=== PATIENT | male | born 1950 | race Caucasian/White ===

== ENCOUNTER → 2024-06-24 11:50 | Outpatient (CLI) | payer OTHER, SELFPAY ==
--- NOTE | 2024-06-24 11:56 | DI.CT.S_ITS ---
PROCEDURE: CT CHEST WO CON INDICATIONS: ABN FINDING OF LUNG FIELD TECHNIQUE: Noncontrast 5 mm thick sections acquired from the pulmonary apices to the posterior costophrenic angles. 1 mm lung window, 5 mm thick coronal and sagittal and 7 mm axial MIP reformats were then acquired. For radiation dose reduction, the following was used: automated exposure control, adjustment of mA and/or kV according to patient size. COMPARISON: None. FINDINGS: Image quality: Diagnostic. Lower Neck: No enlarged lymph nodes. Thyroid: No thyroid nodules which require sonographic follow up, per consensus guidelines. Axillae: No enlarged lymph nodes. Chest Wall: Bilateral gynecomastia. Bones: Degenerative changes of the thoracic spine. Lungs and Pleura: No pneumothorax or pleural effusions. Calcified granuloma present. Juxtapleural nodules with smooth margins, favoring benign intrapulmonary lymph nodes. Heart: Heart size is normal. No pericardial effusion. Thoracic Vessels: The aorta and pulmonary arteries demonstrate normal size. Mediastinum and Christine: No enlarged lymph nodes. Esophagus: No wall thickening. No hiatal hernia. Upper Abdomen: Visualized upper abdomen solid organs and bowel loops appear normal. IMPRESSION: No suspicious pulmonary nodules. Calcified granuloma, which are benign. Dictated by: Carrington Weston M.D. on 06/24/2024 at 14:14 Approved by: Carrington Weston M.D. on 06/24/2024 at 14:17
== END ==
PROVIDERS: Referring Provider Family Medicine; Visit Provider Family Medicine
DX: R91.8 Other nonspecific abnormal finding of lung field (principal); J98.4 Other disorders of lung; N62 Hypertrophy of breast; Z72.0 Tobacco use
CPT/HCPCS: 71250

== ENCOUNTER → 2024-10-05 12:37 | Outpatient (CLI) | payer OTHER, SELFPAY ==
[2024-10-05 15:42] LABS: Vitamin D 25 Hydroxy (D3) 59.4 ng/mL (30.0-100.0)
== END ==
LOC: LAB 12:42
PROVIDERS: PCP Family Medicine; Referring Provider Family Medicine; Visit Provider Family Medicine
DX: Z51.81 Encounter for therapeutic drug level monitoring (principal)
CPT/HCPCS: 36415; 82306